=== PATIENT | female | born 1980 | race Caucasian/White ===

== ENCOUNTER 2019-07-10 10:17 | Outpatient (CLI) | payer BC, SELFPAY ==
--- NOTE | ~2019-07-10 | MM_ITS ---
EXAMINATION: MM screening pasha BI w az HISTORY: Screening mammogram TECHNIQUE: Craniocaudal and mediolateral oblique 3-D tomosynthesis images were obtained and synthetic 2-D images were generated. CAD analysis was submitted and interpreted. COMPARISON: 11/17/2013 BREAST PARENCHYMAL COMPOSITION: The breasts are heterogeneously dense, which may obscure small masses . FINDINGS: There is no evidence of suspicious mass, calcification, or architectural distortion to sugg est malignancy in either breast. There has been no suspicious interval change. IMPRESSION: 1. No mammographic evidence of malignancy. 2. Recommend routine screening mammography in one year. BI-RADS Category 1: Negative Reviewed, dictated and finalized at location A.
== END 2019-07-10 10:18 | disposition home or self-care (01) ==
LOC: ANHIMG 10:30
PROVIDERS: Visit Provider Obstetrics & Gynecology
DX: Z12.31 Encounter for screening mammogram for malignant neoplasm of breast (principal)
CPT/HCPCS: 77063; 77067

== ENCOUNTER 2023-01-19 16:07 | Outpatient (CLI) | payer BC, SELFPAY ==
--- NOTE | ~2023-01-19 | MM_ITS ---
EXAMINATION: MM screening pasha BI w az HISTORY: Screening mammogram TECHNIQUE: Craniocaudal and mediolateral oblique 3-D tomosynthesis images were obtained and synthetic 2-D images were generated. CAD analysis was submitted and interpreted. COMPARISON: 07/10/2019 bilateral screening mammogram BREAST PARENCHYMAL COMPOSITION: There are scattered areas of fibroglandular density. FINDINGS: There is no evidence of suspicious mass, calcification, or architectural distortion to sugg est malignancy in either breast. There has been no suspicious interval change. IMPRESSION: 1. No mammographic evidence of malignancy. 2. Recommend routine screening mammography in one year. BI-RADS Category 1: Negative Reviewed, dictated and finalized at location A. IATIVE CARE COORDINATOR
== END 2023-01-19 16:08 | disposition home or self-care (01) ==
LOC: ANHIMG 16:30
PROVIDERS: Visit Provider Obstetrics & Gynecology
DX: Z12.31 Encounter for screening mammogram for malignant neoplasm of breast (principal)
CPT/HCPCS: 77063; 77067

== ENCOUNTER 2024-12-28 10:20 | Outpatient (CLI) | payer BC, SELFPAY ==
--- OUTSIDE RECORDS SUMMARY | 2024-12-27 08:00 | XMS_ITS | Encounter Summary ---
Author Organization [facility] Address [address] [place] [address] Phone Care Team Providers Care Retail Marketing Manager Name Role Phone Solitario Mondragon DO Primary Care Provider + [phone] Reason for Referral * MRI/CAT/PET Scan (Routine) - Pending Review Specialty Diagnoses / Procedures Referred By Contac t Referred To Contact Radiology Diagnoses Bilateral kidney stones Procedures CT KUB Stone WO Contrast Nathalie Fontenot MD [address] [facility] [place] [address] Phone: tel: fax: [address] [phone] Referral ID Status Reason Start Date Expiration Date V isits Requested Visits Authorized [id number] Pending Review 12/27/2024 01/26/2026 1 1 Encounter Details Date Type Department Care Team (Late st Contact Info) Description 12/27/2024 8:00 AM CDT Telemedicine [facility] ([facility]) - [facility] Medicine Urology [address] [place] [address] Advanced Medicine 11th [place] [address] [place] [address] Nathalie Fontenot MD [address] [facility] [place] [address] Bilateral kidney stones (Primary Dx) Social History Tobacco Use Types Packs/Day Years Used Date Smoking Tobacco: Never Passive Smoke Exposure: Past Smokeless Tobacco: Never Social Connection and Isolation Panel Answer Date Recorded In a typical week, how many times do you talk on the phone with family, friends, or neighbors? More than three times a week 12/08/2021 How often do you get togethe r with friends or relatives? More than three times a week 12/08/2021 How often do you attend chur ch or hoahaoism services? 1 to 4 times per year 12/08/2021 Do you belong to any clubs o r organizations such as orthodox groups, unions, fraternal or athletic groups, or school groups? No 12/08/2021 How often do you attend meet ings of the clubs or organizations you belong to? Never 12/08/2021 Are you , , di vorced, , never , or living with a partner? Living with partner 12/08/2021 AUDIT-C Answer Date Recorded Q1: How often do you have a drink containing alc ohol? Monthly or less 12/07/2021 Average Number of Drinks Not on file 022 Q3: How often do you have si x or more drinks on one occasion? Never 12/07/2021 Overall Financial Resource Strain (CARDIA) Answe r Date Recorded How hard is it for you to pa y for the very basics like food, housing, medical care, and heating? Not very hard 12/08/2021 PRAPARE - Transportation Answer Date Re corded In the past 12 months, has l ack of transportation kept you from medical appointments or from getting medications? No 11/28 In the past 12 months, has l ack of transportation kept you from meetings, work, or from getting things needed for daily living? 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 This was a telemedicine visit with Amara Pradhan alone which took place via Real-time video connection (InTouch, Zoom or similar). During the visit, I was located at [facility] and the patient was locatedat home in the [facility]. Start time: 12/27/2024 8:02 AM CDT End time: 12/27/2024 8:09 AM CDT My total encounter time on 12/27/2024 was 22 minutes which was spent in the activities documented in the note. This includes time spent prior to the visit and after the visit in direct care of the patient. This time does not include time spent in any separately reportable services.. The patient has been informed that the visit may not be secure and acknowledged the information. The option of participating in a telephone or video visit during the [facility]-19 public health emergency was explained to them. After being given an opportunity to ask questions about and discuss this typeof visit, they verbally consented to proceeding with the telephone/video visit and understand that this service replaces an office visit. HPI: Amara Pradhan is a 44 y.o. white female who is presenting for urolithiasis 10/2021 underwent urgent stenting for bilateral ureteral stones 4mm right distal ureter and 4 mm on the left, right side URS performed and left stented 11/2021 definitive treatment of left sided stone 11/2024: no stone issues no UTIs doing well, had ultrasound that showed possible bl stones. She is interested in possible definitive treatment. She is drinking unstweeted tea and 24 ounces of water aday Allergies as of 12/27/2024 - Reviewed 01/02/2022 Allergen Reaction Noted Sulfa (sulfonamide antibiotics) Hives 02/24/2018 Okra Flushing (skin) 10/31/2021 Current Outpatient Medications: amoxicillin-clavulanate (AUGMENTIN) 875-125 mg per tablet, Take 1 tablet by mouth 2 (two) times a day, Disp: 20 tablet, Rfl: 0 cyanocobalamin (Vitamin B-12) 100 mcg tablet, Take 100 mcg by mouth daily, Disp: , Rfl: FLUoxetine (PROzac) 40 mg capsule, Take 40 mg by mouth nightly, Disp: , Rfl: HYDROcodone-acetaminophen (NORCO) 5-325 mg per tablet, Take 1 tablet by mouth every 6 (six) hours as needed for pain, Disp: 16 tablet, Rfl: 0 ketorolac (TORADOL) 10 mg tablet, Take 1 tablet (10 mg total) by mouth every 6 (six) hours as needed for pain, Disp: 20 tablet, Rfl: 0 loratadine (CLARITIN) 10 mg tablet, Take 10 mg by mouth daily as needed for allergies, Disp: , Rfl: norgestrel-ethinyl estradioL (LOW-OGESTREL,CRYSELLE) 0.3-30 mg-mcg per tablet, Take 1 tablet by mouth daily, Disp: , Rfl: ondansetron (ZOFRAN) 4 mg tablet, Take 1 tablet (4 mg total) by mouth every 6 (six) hours as neededfor nausea or vomiting, Disp: 15 tablet, Rfl: 0 tamsulosin (FLOMAX) 0.4 mg extended release capsule, Take 1 capsule (0.4 mg total) by mouth daily, Disp: 14 capsule, Rfl: 0 vitamin E (AQUASOL E) 200 unit capsule, Take 200 Units by mouth daily, Disp: , Rfl: Past Medical History: Diagnosis Date Anxiety Asthma Kidney stones Motion sickness Past Surgical History: Procedure Laterality Date CYSTOSCOPY W/ URETEROSCOPY W/ LITHOTRIPSY UMBILICAL HERNIA REPAIR N/A 12 yrs ago Family History Problem Relation Age of Onset Depression Mother COPD Mother Arthritis Mother Kidney disease Father Cancer Father defects Sister Anemia Sister defects Brother Diabetes Maternal Grandmother Stroke Maternal Grandfather Heart attack Paternal Grandmother Anemia Paternal Grandmother Social History Tobacco Use Smoking status: Never Passive exposure: Past Smokeless tobacco: Never Substance and Sexual Activity Drug use: Yes Types: Alcohol Comment: less than monthly Sexual activity: Defer Alcohol Use: Unknown (12/07/2021) AUDIT-C Frequency of Alcohol Consumption: Monthly or less Average Number of Drinks: Not on file Frequency of Binge Drinking: Never Physical Exam: None, telehealth visit. Assessment/Plan: Amara Pradhan is a 44 y.o. female with nephrolithiasis We discussed next steps including observation or stone treatment She is interested in treatment CT KUB to better eval stone burden documented in this encounter Plan of Treatment Scheduled Orders Name Type Priority Associated Diagnoses Orde r Schedule CT KUB Stone WO Contrast Imaging Schedule Routine, Read Routine (OP Routine) Bilateral kidney stones Expected: 12/27/2024, Expires: 12/27/2025 documented as of this encounter Visit Diagnoses Diagnosis Bilateral kidney stones- Primary documented in this encounter Care Teams Retail Marketing Manager Relationship Specialty Start Date End Date Solitario Mondragon DO [address] [place] [id number] PCP - General Family Practice 11/04/21 documented as of this encounter
--- NOTE | ~2024-12-28 | MM_ITS ---
EXAMINATION: MM screening [facility] BI [place] HISTORY: Screening TECHNIQUE: Craniocaudal and mediolateral oblique 3-D tomosynthesis images were obtained and synthetic 2-D images were generated. CAD analysis was submitted and interpreted. COMPARISON: 07/10/2019 BREAST PARENCHYMAL COMPOSITION: Not dense: There are scattered areas of fibroglandular density. FINDINGS: There is no evidence of suspicious mass, calcification, or architectural distortion to suggest malignancy in either breast. There has been no suspicious interval change. IMPRESSION: 1. No mammographic evidence of malignancy. 2. Recommend routine screening mammography in one year. BI-RADS Category 1: Negative Reviewed, dictated and finalized at location B.
--- OUTSIDE RECORDS SUMMARY | 2024-12-28 10:50 | XMS_ITS | Encounter Summary ---
Author Organization [facility] Address [address] [place] [address] Care Team Providers Care Sales Administration Specialist Name Role Phone ThanhSolitario devine Ranjan CHAVARRIA Primary Care Provider [phone] Encounter Details Date Type Department Care Team (Late st Contact Info) Description 08/27/2024 Hospital Follow-up Call [facility] Cardiovascular Care Unit [address] [place] [address] Yasmine Fischer RN Social History Tobacco Use Types Packs/Day Years Used Date Smoking Tobacco: Never Smokeless Tobacco: Never Alcohol Use Standard Drinks/Week Comments Yes 0 (1 standard drink = 0.6 oz pur e alcohol) [facility] Utilities Answer Date Recorded In the past 12 months has e [employer], gas, oil, or water iPointer threatened to shut off services in your home? No 08/21/2024 Humiliation, Afraid, Rape, and Kick questionnair e Answer Date Recorded Within the last year, have y ou been afraid of your partner or ex-partner? No 08/21/2024 Within the last year, have y ou been humiliated or emotionally abused in other ways by your partner or ex-partner? No Within the last year, have y ou been kicked, hit, slapped, or otherwise physically hurt by your partner or ex-partner? No 08/21/2024 Within the last year, have y ou been raped or forced to have any kind of sexual activity by your partner or ex-partner? No 08/21/2024 Overall Financial Resource Strain (CARDIA) Answe r Date Recorded How hard is it for you to pa y for the very basics like food, housing, medical care, and heating? Not hard at all 08/21/2024 Hunger Vital Sign Answer Date Recorded Within the past 12 months, y ou worried that your food would run out before you got the money to buy more. Never true 08/22/19 25 Within the past 12 months, t he food you bought just didn't last and you didn't have money to get more. Never true 08/21/2024 PRAPARE - Transportation Answer Date Re corded In the past 12 months, has l ack of transportation kept you from medical appointments or from getting medications? No 07/30 In the past 12 months, has l ack of transportation kept you from meetings, work, or from getting things needed for daily living? No 08/21/2024 Housing Stability Vital Sign Answer Jkae e Recorded In the last 12 months, was t here a time when you were not able to pay the mortgage or rent on time? No 08/21/2024 In the past 12 months, how m any times have you moved where you were living? 0 08/21/2024 At any time in the past 12 m [facility], were you homeless or living in a long-term (including now)? No 08/21/2024 Comments Unknown Sex and Gender Information Value Date Recorded Sex Assigned at Female 09/12/2024 11:04 AM CDT Legal Sex Female 2:35 PM CDT Gender Identity Female 09/12/2024 11:04 AM CDT Sexual Orientation Straight 09/12/2024 11 :04 AM CDT documented as of this encounter Functional Status * Are you deaf or do you have serious difficulty hearing Answer Date of Assessment Author Status No 08/21/2024 5:00 PM CDT Emily Fall RN Active * Are you blind or do you have serious difficulty seeing, even when wearing glasses? Answer Date of Assessment Author Status No 08/21/2024 5:00 PM CDT Emily Fall RN Active * Do you have serious difficulty walking or climbing stairs? Answer Date of Assessment Author Status No 08/21/2024 5:00 PM CDT Emily Fall RN Active * Do you have difficulty dressing or bathing? Answer Date of Assessment Author Status No 08/21/2024 5:00 PM Emily Velasquez RN Active * Because of a physical, mental, or emotional condition, do you have difficulty doing errands alone such as visiting a doctor's office or shopping? Answer Date of Assessment Author Status No 08/21/2024 5:00 PM Emily Velasquez RN Active documented as of this encounter Mental Status * Because of a physical, mental, or emotional condition, do you have serious difficulty concentrating, remembering, or making decisions? Answer Entry Date Author Status No 08/21/2024 5:00 PM Emily Velasquez RN Active documented in this encounter Plan of Treatment Not on file documented as of this encounter Visit Diagnoses Not on filedocumented in this encounter Care Teams Sales Administration Specialist Relationship Specialty Start Date End Date Solitario Mondragon DO [address] [place] [phone] PCP - General FAMILY PRACTICE 08/21/24 documented as of this encounter
--- OUTSIDE RECORDS SUMMARY | 2024-12-28 10:50 | XMS_ITS | Clinical Summary ---
Author Organization [facility] Address [address] [place] [address] Care Team Providers Care Household Coordinator Name Role Phone ThanhSolitario devine Ranjan CHAVARRIA Primary Care Provider [phone] Allergies Active Allergy Reactions Criticality Noted Date Comments Sulfa Antibiotics Hives,Shortness of Breath High Medications FLUoxetine (PROZAC) 40 MG capsule Take 1 capsule (40 mg total) by mouth daily. Active aspirin EC (ECOTRIN) 81 MG tablet Take 1 tablet (81 mg total) by mouth daily. 30 tablet 1 08/24/2024 Active loratadine (CLARITIN) 10 MG tablet Take 1 tablet (10 mg total) by mouth daily as needed. Active norgestrel-ethi nyl estradiol (LO/OVRAL) 0.3-30 MG-MCG tablet Take 1 tablet by mouth daily. Active atorvastatin (LIPITOR) 40 MG tablet Take 1 tablet (40 mg total) by mouth nightly at bedtime. Take 1/2 tab by mouth for three days, then take 1 tab by mouth daily 90 tablet 3 09/25/2024 Active Active Problems Problem Noted Date Diagnosed Date Coronary artery disease invo [place] coronary artery of [place] heart without angina pectoris 09/25/2024 Hyperlipidemia, mixed 09/25/2024 Kidney stones Resolved Problems Problem Noted Date Diagnosed Date Resolved Date NSTEMI (non-ST elevated myoc ardial infarction) 08/21/2024 08/23/2024 Encounters Date Type Department Care Team Description 10/05/2024 [facility] [address] [place] [address] Philip Carter MD Error from Last 3 Months Family History Relation Status Comments Father Mother Alive Social History Tobacco Use Types Packs/Day Years Used Date Smoking Tobacco: Never Smokeless Tobacco: Never Tobacco Cessation:Counseling Given: Not Answered Alcohol Use Standard Drinks/Week Comments Yes 0 (1 standard drink = 0.6 oz pur e alcohol) [facility] Utilities Answer Date Recorded In the past 12 months has th e [employer], gas, oil, or water in2nite threatened to shut off services in your [...] No 08/21/2024 Housing Stability Vital Sign Answer Jake e Recorded In the last 12 months, was t here a time when you were not able to pay the mortgage or rent on time? No 08/21/2024 In the past 12 months, how m any times have you moved where you were living? 0 08/21/2024 At any time in the past 12 m [facility], were you homeless or living in a skilled nursing (including now)? No 08/21/2024 Comments Unknown Sex and Gender Information Value Date Recorded Sex Assigned at Female 09/12/2024 11:04 AM CDT Legal Sex Female 2:35 PM CDT Gender Identity Female 09/12/2024 11:04 AM CDT Sexual Orientation Straight 09/12/2024 11 :04 AM CDT Last Filed Vital Signs Vital Sign Reading Time Taken Comments Blood Pressure 120/72 09/25/2024 3:27 PM CDT Pulse 101 09/25/2024 3:27 PM CDT Temperature 36.7 C (98.1 F) 08/23/2024 8:34 AM CDT Respiratory Rate 16 09/25/2024 3:27 PM CDT Oxygen Saturation 96% 09/25/2024 3:27 PM CDT Inhaled Oxygen Concentration - - Weight 84.8 kg (187 lb) 09/25/2024 3:27 PM CDT Height 162.6 cm (5' 4) 09/25/2024 3:27 PM CDT Body Mass Index 32.1 09/25/2024 3:27 PM CDT Plan of Treatment Health Maintenance Due Date Last Done Comments Cervical Cancer Screening Pa p Smear (Age 30 to 64) Every 3 Years 1979 Colorectal Cancer Screening Colonoscopy (10 Years) 1979 Annual Physical 05/16/1982 Hepatitis C 05/16/1997 Hepatitis B Vaccines (1 of 3 - 19+ 3-dose series) 05/16/1998 Pneumococcal Vaccine: Pediatrics (0 to 5 Years) and At-Risk Patients (6 to 49 Years) (1 of 2 - PCV) 05/16/1998 HPV Vaccines (1 - 3-dose SCD M series) 05/16/2006 Cervical Cancer Screening Pa p with HPV Testing (Age 30 to 64) Every 5 Years 05/16/2009 Cervical Cancer Screening wi th HPV 05/16/2009 Mammogram Screening 2019 COVID-19 Vaccine (2024-2 6 season) 2024 04/04/2020, 03/07/2020 Influenza Adult (#1) 2024 DTaP, Tdap and Td Vaccines ( 3 - Td or Tdap) 07/19/2032 07/19/2022, 07/09/2016 Hepatitis A Vaccines Aged Out No long er eligible based on patient's age to complete this topic Meningococcal B Vaccine Aged Out No l onger eligible based on patient's age to complete this topic Meningococcal Vaccine Aged Out No vika jo ann eligible based on patient's age to complete this topic RSV Immunizations Under 20 Months Aged Out No longer eligible b ased on patient's age to complete this topic Insurance [id number] [place] [address] [facility] Advance Directives * Full Code (Latest Code Status on File) Date Activated Date Inactivated Comments 08/21/2024 6:42 PM 08/23/2024 1:11 PM Care Teams Household Coordinator Relationship Specialty Start Date End Date Solitario Mondragon DO [address] [place] [phone] PCP - General FAMILY PRACTICE 08/21/24
--- OUTSIDE RECORDS SUMMARY | 2024-12-28 10:51 | XMS_ITS | Encounter Summary ---
Author Organization [facility] Address [address] [place] [address] Phone Care Team Providers Care Fork Lift Truck Operator Name Role Phone Solitario Mondragon DO Primary Care Provider [phone] Encounter Details Date Type Department Care Team (Late st Contact Info) Description 11/29/2024 Results Follow-Up [facility] Medicine Urology [address] [place] [address] Medicine 11th [place] [address] [place] [address] Little Cullen, VOTING MACHINE MECHANIC Kidney Complete Social History Tobacco Use Types Packs/Day Years [...] 12/08/2021 How often do you attend chur or christian services? 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
--- OUTSIDE RECORDS SUMMARY | 2024-12-28 10:51 | XMS_ITS | Clinical Summary ---
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 Name Role Phone Solitario Mondragon DO Primary Care Provider [phone] Allergies Active Allergy Reactions Criticality Noted Date Comments Okra Flushing (skin) Low 10/31/2021 Sulfa (Sulfonamide Antibiotics) Hives Medium 01/29 Medications ondansetron (ZOFRAN) 4 mg tabletIndicatio ns:Nausea and Vomiting Take 1 tablet (4 mg total) by mouth every 6 (six) hours as needed for nausea or vomiting 15 tablet 2 Active FLUoxetine (PROzac) 40 mg capsule Take 40 mg by mouth nightly Active vitamin E (AQUASOL E) 200 unit capsule Take 200 Units by mouth daily Active loratadine (CLARITIN) 10 mg tablet Take 10 mg by mouth daily as needed for allergies Active ketorolac (TORADOL) 10 mg tablet Take 1 tablet (10 mg total) by mouth every 6 (six) hours as needed for pain 20 tablet 2 Active norgestrel-ethi nyl estradioL (LOW-OGESTREL,Ish JORGE) 0.3-30 mg-mcg per tablet Take 1 tablet by mouth daily Active cyanocobalamin (Vitamin B-12) 100 mcg tabletIndicatio ns:Prevention of Vitamin B12 Deficiency Take 100 mcg by mouth daily Active HYDROcodone-fermin taminophen (NORCO) 5-325 mg per tabletIndicatio ns:Pain Take 1 tablet by mouth every 6 (six) hours as needed for pain 16 tablet 2 Active amoxicillin-cla vulanate (AUGMENTIN) 875-125 mg per tablet Take 1 tablet by mouth 2 (two) times a day 20 tablet 2 Active tamsulosin (FLOMAX) 0.4 mg extended release capsule Take 1 capsule (0.4 mg total) by mouth daily 14 capsule 2 Active Active Problems Problem Noted Date Diagnosed Date Septic shock 12/07/2021 Pyelonephritis, left 12/07/2021 Rigors 12/07/2021 BENJAMIN (acute kidney injury) 12/07/2021 Hyponatremia 12/07/2021 Lactic acidosis 12/07/2021 Nausea and vomiting 12/07/2021 Anxiety 12/07/2021 Bilateral kidney stones 10/31/2021 Hydronephrosis with urinary obstruction due to ureteral calculus 10/31/2021 Encounters Date Type Department Care Team Description 12/27/2024 8:00 AM CDT Telemedicine [facility] [place] [facility] [address] [place] [address] [address] [place] [id number] Nathalie Fontenot MD Bilateral kidney stones (Primary Dx) 11/29/2024 Results Follow-Up [facility]) - [facility] [address] [place] [address] [address] [place] [id number] Little Cullen CMA US Kidney Complete 11/24/2024 9:07 AM CDT - 11/24/2024 11:59 PM CDT Hospital Encounter [facility] [address] [place] [address] Hydronephrosis with urinary obstruction due to ureteral calculus Discharge Disposition: Discharge to home or self care from Last 3 Months Surgical History Surgery Date Site/Laterality Comments UMBILICAL HERNIA REPAIR N/A 12 yrs ago CYSTOSCOPY W/ URETEROSCOPY W/ LITHOTRIPSY Medical History Medical History Date Comments Asthma Motion sickness Kidney stones Anxiety Family History Medical History Relation Name Comments defects Brother Cancer Father Kidney disease Father Stroke Maternal Grandfather Diabetes Maternal Grandmother Arthritis Mother COPD Mother Depression Mother Anemia Paternal Grandmother Heart attack Paternal Grandmother Anemia Sister defects Sister Relation Name Status Comments Brother Father Maternal Grandfather Maternal Grandmother Mother Alive Paternal Grandmother Sister Social History Tobacco Use Types Packs/Day Years Used Date Smoking Tobacco: Never Passive Smoke Exposure: Past Smokeless Tobacco: Never Tobacco Cessation:Counseling Given: Not Answered Social Connection and Isolation Panel Answer Date Recorded In a typical week, how many times do you talk on the phone with family, friends, or neighbors? More than three times a week 12/08/2021 How often do you get togethe r with friends or relatives? More than three times a week 12/08/2021 How often do you attend chur ch or buddhist services? 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 Gender Identity Not on file Sexual Orientation Not on file Obstetrics History Last Filed Vital Signs Vital Sign Reading Time Taken Comments Blood Pressure 123/81 01/02/2022 10:14 PM CDT Pulse 72 01/02/2022 10:14 PM CDT Temperature 36.9 C (98.4 F) 01/02/2022 10:14 PM CDT Respiratory Rate 18 01/02/2022 10:14 PM CDT Oxygen Saturation 100% 01/02/2022 10:14 PM CDT Inhaled Oxygen Concentration - - Weight 77.1 kg (170 lb) 01/02/2022 10:14 PM CDT Height 162.6 cm (5' 4) 01/02/2022 10:14 PM CDT Body Mass Index 29.18 01/02/2022 10:14 PM CDT Plan of Treatment Health Maintenance Due Date Last Done Comments Breast Cancer Screening-Mammogram 1979 Cervical Cancer Screening 1979 Colon Cancer Screening-Colonoscopy 1979 Depression Screening 1979 Hepatitis C Screening 1979 Varicella Vaccines (1 of 2 - 13+ 2-dose series) 05/16/1992 Regular Well Visit/Exam 18-64 05/16/1997 HPV Vaccines (1 - 3-dose SCD M series) 05/16/2006 Influenza Vaccine (#1) 2024 DTaP/Tdap/Td Vaccine (2 - Td or Tdap) 07/09/2026 07/09/2016 Hepatitis B Screening Completed 05/06/2015 , 12/03/2014, 11/05/2014 Pneumococcal vaccine <65 Aged Out No longer eligible based on patient's age to complete this topic Medical Devices Explanted Type Area Oral And Maxillofacial Surgeon Device Identifier Shelf Expiration Date Model / Serial / Lot [employer] Universa 6fr 24cm Radiopaque Graduate Firm Monofilament Tether [id number] - [id number] Implanted:Qty: 1 on 11/01/2021 by Jordyn Herman MD at [facility] Explanted:Qty: 1 on 12/03/2021 by Nathalie Fontenot MD at [facility] Left: Ureter [employer] [id number] 08/10/2024 [id number] / / [id number] [employer] Universa 6fr 22cm Radiopaque Positioner Monofilament Tether 2 [id number] - [id number] Implanted:Qty: 1 on 11/01/2021 by Jordyn Herman MD at [facility] Explanted:Qty: 1 on 12/03/2021 by Nathalie Fontenot MD at [facility] Right: Ureter [employer] [id number] 06/08/2024 [id number] / / [id number] [employer] Inlay [place] 6fr 24cm Pusher Fluoro Marker Atraumatic Insertion Latex Free [id number] - [id number] Implanted:Qty: 1 on 12/03/2021 by Nathalie Fontenot MD at [facility] Explanted:Qty: 1 on 12/05/2021 by Maddie Karimi, BULK SAUSAGE CASING TIER OFF Ureter [employer] 08/26/2025 [id number] / / [id number] Description:The stent was re moved at home by the patient. Procedures Procedure Name Priority Date/Time Associated Diagnosis Comments US KIDNEY COMPLETE Schedule Routine, Read Routine (OP Routine) 11/24/2024 9:45 AM CDT Hydronephrosis with urinary obstruction due to ureteral calculus from Last 3 Months Results * US Kidney Complete (11/24/2024 9:45 AM CDT) Anatomical Region Laterality Modality Kidney N/A Ultrasound 11/24/2024 2:46 PM CDT Impressions 11/24/2024 2:46 PM CDT Bilateral nonobstructing nephrolithiasis. Urinary bladder distention. Electronically signed by: Shirley Arroyo 11/24/2024 2:46 PM CDT EXAMINATION: RENAL ULTRASOUND Date: 11/24/2024 9:15 AM History: kidney stone f/u kidney stones Comparison: Renal ultrasound 11/11/2023 Findings: The right kidney measures 12.4 x 4.5 x 4.7 cm, previously 11.9 x 4.8 x 5.1 cm . Parenchymal echogenicity is hypoechoic to the liver. 590 shadowing clinical artifact is seen in the mid and lower pole up to 5 mm. No hydronephrosis noted. The left kidney measures 12.2 x 4.2 x 4.2, previously 12 .4 x 4.9 x 4.4 cm. Parenchymal echogenicity is isoechoic to the spleen. Lower pole 4 mm technical artifact is seen. There is no hydronephrosis. The bladder is distended but no volume is available.. Bilateral ureteral jets are seen. Procedure Note Leslie Allen MD - 11/24/2024 EXAMINATION: RENAL ULTRASOUND Date: 11/24/2024 9:15 AM History: kidney stone f/u kidney stones Comparison: Renal ultrasound 11/11/2023 Findings: The right kidney measures 12.4 x 4.5 x 4.7 cm, previously 11.9 x 4.8 x 5.1 cm . Parenchymal echogenicity is hypoechoic to the liver. 590 shadowing clinical artifact is seen in the mid and lower pole up to 5 mm. No hydronephrosis noted. The left kidney measures 12.2 x 4.2 x 4.2, previously 12 .4 x 4.9 x 4.4 cm. Parenchymal echogenicity is isoechoic to the spleen. Lower pole 4 mm technical artifact is seen. There is no hydronephrosis. The bladder is distended but no volume is available.. Bilateral ureteral jets are seen. IMPRESSION: Bilateral nonobstructing nephrolithiasis. Urinary bladder distention. Electronically signed by: Leslie Allen M.D. us Nathalie Corie OSCAR IM US PROCEDURES Final Result from Last 3 Months Insurance [employer] [facility] Member Subscriber Plan / Payer (Ef fective 2018-Present) Name:Amara Pradhan Relation to Subscriber:Self Name:Amara Pradhan Payer ID:[id number] ([facility]) Type:[facility] Address: [facility] [id number] [place] [id number] [employer] [place] For more information, please contact: [phone] * Full Code (Latest Code Status on File) Date Activated Date Inactivated Comments 12/07/2021 3:41 AM 12/09/2021 9:35 PM * Full Code Date Activated Date Inactivated Comments 10/31/2021 11:58 PM 11/01/2021 7:28 PM Care Teams Guitar Maker Relationship Specialty Start Date End Date Solitario Mondragon DO [address] [place] [id number] PCP - General Family Practice 11/04/21
== END 2024-12-28 10:21 | disposition home or self-care (01) ==
LOC: ANHFOHIMG 10:21
PROVIDERS: Visit Provider Obstetrics & Gynecology
DX: Z12.31 Encounter for screening mammogram for malignant neoplasm of breast (principal)
CPT/HCPCS: 77063; 77067